=== PATIENT | female | born 1960 | race Caucasian/White ===

== ENCOUNTER 2019-05-06 06:10 | Day surgery (SDC) | payer BC ==
[2019-05-06] MEDS ORDERED: LIDOCAINE 2% (SDV) 5 ML INJ (08:51)
[2019-05-06] MEDS ORDERED: PROPOFOL 60 ML (08:51)
== END 2019-05-06 09:57 | disposition home or self-care (01) ==
LOC: GIL 06:10
DX: Z12.11 Encounter for screening for malignant neoplasm of colon (principal); K29.30 Chronic superficial gastritis without bleeding; K64.4 Residual hemorrhoidal skin tags
CPT/HCPCS: 43239; 88305; 88312